=== PATIENT | female | born 1985 | race Caucasian/White ===

== ENCOUNTER 2017-10-28 13:01 | Emergency (ER) | payer SELFPAY ==
[~2017-10-28] VITALS: Ht 165.1 cm; Wt 80.3 kg
[2017-10-28 13:11] VITALS: BP 113/67
== END 2017-10-28 13:38 | disposition left against medical advice (07) ==
LOC: ED 13:32
DX: K08.89 Other specified disorders of teeth and supporting structures (principal); M25.551 Pain in right hip
CPT/HCPCS: 99283

== ENCOUNTER 2017-11-04 14:06 | Emergency (ER) | payer MEDICAID, OTHER ==
[~2017-11-04] VITALS: Ht 162.6 cm; Wt 77.2 kg
[2017-11-04 14:17] VITALS: BP 115/80
[2017-11-04] MEDS ORDERED: IBUPROFEN 200 MG TABLET PO ONE (15:00)
[2017-11-04] MEDS ORDERED: AMOXICILLIN 500 MG CAPSULE PO SCH (15:00)
[2017-11-04] MEDS ORDERED: IBUPROFEN 200 MG TABLET ONE (15:04)
[2017-11-04] MEDS ORDERED: AMOXICILLIN 500 MG CAPSULE PO ONE (15:30)
== END 2017-11-04 15:23 | disposition home or self-care (01) ==
LOC: ED 14:54
DX: K08.89 Other specified disorders of teeth and supporting structures (principal)
CPT/HCPCS: 99283

== ENCOUNTER 2018-08-18 14:27 | Emergency (ER) | payer MEDICAID ==
[~2018-08-18] VITALS: Ht 165.1 cm; Wt 72.5 kg
[2018-08-18 14:47] VITALS: BP 115/61
[2018-08-18] MEDS ORDERED: METHOCARBAMOL 750 MG TABLET PO ONE (15:30)
[2018-08-18] MEDS ORDERED: ACETAMINOPHEN 325 MG TABLET PO ONE (15:30)
[2018-08-18] MEDS ORDERED: KETOROLAC 30 MG/1 ML IM ONE (15:30)
--- NOTE | 2018-08-18 15:38 | NUR ---
PT REFUSED ALL MEDS, REFUSED [employer]. PT GIVEN DC INSTRUCTIONS AND SCRIPT. EDUCATED REGARDING RX FOR ROBAXAN. PT AMB TO DC DESK WITH STEADY GAIT, NADN AT DC.
== END 2018-08-18 15:40 | disposition home or self-care (01) ==
LOC: ED 15:30
DX: G89.11 Acute pain due to trauma (principal); M54.5 Low back pain; F20.9 Schizophrenia, unspecified; Z88.5 Allergy status to narcotic agent; W18.30XA Fall on same level, unspecified, initial encounter; Y93.89 Activity, other specified; Y92.89 Other specified places as the place of occurrence of the external cause; Y99.8 Other external cause status
CPT/HCPCS: 99283